=== PATIENT | male | born 2000 | race Caucasian/White ===

== ENCOUNTER 2023-10-14 11:26 | Emergency (ER) | payer OTHER ==
[~2023-10-14] VITALS: Ht 180.3 cm; Wt 115.7 kg
[2023-10-14 11:38] VITALS: BP_SYST 123; PULSE 107; RESP 20; TEMP 98.3; O2SAT 94
[2023-10-14] MEDS ORDERED: DEXAMETHASONE SOD PHOSPHATE 10 MG/ML VIAL IVP ONE (12:00)
[2023-10-14] MEDS ORDERED: KETOROLAC TROMETHAMINE 15 MG VIAL IVP ONE (12:00)
[2023-10-14] MEDS ORDERED: NACL 0.9% 1,000 ML IV ONE (12:00)
[2023-10-14] MEDS ORDERED: LIDOCAINE/EPI 1% 1:100000 20 ML VIAL INJ ONE (13:30)
[2023-10-14] MEDS ORDERED: BENZOCAINE 20% 0.5mL UD SPRAY MM ONE (13:30)
[2023-10-14] MEDS ORDERED: LIDOCAINE 1% 10 MG/ML, 20 ML MDV INJ ONE (13:30)
[2023-10-14] MEDS ORDERED: IBUP-1969 PO (14:22)
[2023-10-14 14:48] VITALS: BP_SYST 118; PULSE 76; RESP 16; TEMP 97.1; O2SAT 99
== END 2023-10-14 14:48 | disposition home or self-care (01) ==
LOC: SED 11:26
DX: J36 Peritonsillar abscess (principal); Z79.899 Other long term (current) drug therapy
CPT/HCPCS: 99285; 42700; 96374; 70491; 96361; 96375; 76376; J1100; J1885; Q9967; J7030; J2001

== ENCOUNTER 2023-10-28 15:16 | Emergency (ER) | payer OTHER ==
[~2023-10-28] VITALS: Ht 180.3 cm; Wt 117.9 kg
[2023-10-28 15:16] VITALS: BP_SYST 115; PULSE 120; RESP 18; TEMP 97.6; O2SAT 96
[~2023-10-28 15:16] MED LIST: IBUP-1969 PO
[2023-10-28] MEDS ORDERED: PENICILLIN G BENZATHINE 1.2 MMU/2 ML SYR IM ONE ×2 (16:30)
[2023-10-28] MEDS ORDERED: DEXAMETHASONE SOD PHOSPHATE 10 MG/ML VIAL IM ONE (16:30)
[2023-10-28] MEDS ORDERED: IBUP-1971 PO (16:34)
[2023-10-28 18:06] VITALS: BP_SYST 112; PULSE 110; RESP 18; TEMP 97.1; O2SAT 96
== END 2023-10-28 17:54 | disposition home or self-care (01) ==
LOC: SED 15:16
DX: J36 Peritonsillar abscess (principal); Z79.899 Other long term (current) drug therapy
CPT/HCPCS: 99284; 96372; J0561

== ENCOUNTER 2024-02-20 21:06 | Emergency (ER) | payer OTHER ==
[~2024-02-20] VITALS: Ht 177.8 cm; Wt 113.4 kg
[~2024-02-20 21:06] MED LIST changes: +IBUP-1971 PO
[2024-02-20 21:22] VITALS: BP_SYST 124; PULSE 118; RESP 20; TEMP 97.2; O2SAT 96
[2024-02-20] MEDS: ONDANSETRON HCL 4 MG/2 ML VIAL IVP ONE (21:53)
[2024-02-20] MEDS: NACL 0.9% 1,000 ML IV ONE (21:53)
[2024-02-20 22:03] LABS: BASOPHILS % (AUTO) 0.1 % (0.0-2.0); HEMATOCRIT 41.8 % (36-54); HEMOGLOBIN 14.2 g/dL (14.0-18.0); LYMPHOCYTES # (AUTO) 0.6 K/uL (1.0-5.5); LYMPHOCYTES % (AUTO) 5.1 % (20.5-51.5); MEAN CORPUSCULAR HEMOGLOBIN 29 pg (27-31); MEAN CORPUSCULAR HGB CONC 34 % (32-36); MEAN CORPUSCULAR VOLUME 84 fL (79.0-98.0); MONOCYTES # (AUTO) 0.4 K/uL (0.0-1.0); MONOCYTES % (AUTO) 3.1 % (1.7-9.3); NEUTROPHILS # (AUTO) 11.5 K/uL (1.8-7.7); NEUTROPHILS % (AUTO) 91.7 % (40.0-70.0); PLATELET COUNT (AUTO) 227 K/uL (130-430); RED BLOOD CELL COUNT(AUTO) 4.97 MIL/uL (4.2-6.2); RED CELL DISTRIBUTION WIDTH 13.2 % (9.0-15.0); WHITE BLOOD COUNT (AUTO) 12.5 K/uL (4.8-10.8)
[2024-02-20 22:04] LABS: CALCIUM 8.9 mg/dL (8.4-11.0); CREATININE 1.14 mg/dL (0.55-1.30)
[2024-02-20 22:09] LABS: PROTHROMBIN TIME 10.6 SECS (9.5-12.5)
[2024-02-21 00:34] VITALS: BP_SYST 102; PULSE 94; RESP 18; TEMP 98; O2SAT 92
== END 2024-02-21 00:15 | disposition home or self-care (01) ==
LOC: SED 21:06
DX: K92.0 Hematemesis (principal); Z79.899 Other long term (current) drug therapy
CPT/HCPCS: 99283; 96374; 96361; 80048; 85025; 85610; 85730; 86886; 86900; 86901; 36415; J2405; J7030